=== PATIENT | female | born 1985 | race Asian ===

== ENCOUNTER 2016-05-07 04:30 | Inpatient (IN) | payer SELFPAY ==
[~2016-05-07] VITALS: Ht 157.5 cm; Wt 63.0 kg
[2016-05-07] MEDS ORDERED: LACTATED RINGERS 1,000 ML IV SCH (05:26)
[2016-05-07] MEDS ORDERED: PROMETHAZINE 25 MG/ML VIAL IVP PRN (05:30)
[2016-05-07] MEDS ORDERED: NALBUPHINE HYDROCHLORIDE 10 MG/ML VIAL IVP PRN (05:30)
[2016-05-07] MEDS ORDERED: OXYTOCIN 20 UNITS/LR PREMIX 1,000 ML IV SCH (05:30)
[2016-05-07] MEDS ORDERED: LACTATED RINGERS 500 ML IV SCH (05:30)
[2016-05-07] MEDS ORDERED: OXYTOCIN 10 UNITS/ML VIAL IM SCH (05:30)
[2016-05-07 06:14] VITALS: BP 130/72
[2016-05-07] MEDS ORDERED: INFLUENZA VIRUS VACCINE QUAD 0.5 ML SYR IMVAC ONE (06:15)
[2016-05-07] MEDS ORDERED: ROPIVACAINE 0.2%/NS PREMIX 250 ML EPI ONE (06:49)
[2016-05-07] MEDS ORDERED: AMPICILLIN 2,000 MG VIAL ONE ×2 (07:48→12:37)
--- NOTE | 2016-05-07 08:31 | NUR ---
PATIENT HAS BEEN SCREENED AND CATEGORIZED LOW NUTRITION RISK. PATIENT WILL BE SEEN WITHIN 7 DAYS OF ADMISSION. 05/13/[address]
[2016-05-07] MEDS ORDERED: OXYTOCIN 10 UNITS/ML VIAL ONE (11:14)
[2016-05-07] MEDS ORDERED: OXYTOCIN 20 UNITS/LR PREMIX 1,000 ML IV ONE (11:34)
[2016-05-07] MEDS ORDERED: oxyCODONE/APAP 5/325 MG 1 TAB TAB ONE (17:44)
[2016-05-07] MEDS ORDERED: TEMAZEPAM 15 MG CAP PO PRN (21:00)
[2016-05-07] MEDS ORDERED: OXYTOCIN 10 UNITS/ML VIAL IM PRN (21:00)
[2016-05-07] MEDS ORDERED: DOCUSATE SOD/SENNA 50/8.6 MG 1 TAB PO SCH (21:00)
[2016-05-07] MEDS ORDERED: MEASLES, MUMPS, AND RUBELLA 1 VIAL SQVAC PRN (21:00)
[2016-05-07] MEDS ORDERED: METHYLERGONOVINE 0.2 MG/ML AMP IM PRN (21:00)
[2016-05-07] MEDS ORDERED: IBUPROFEN 800 MG TAB PO PRN (21:00)
[2016-05-07] MEDS ORDERED: BENZOCAINE/MENTHOL 20%-0.5% 60 GM CAN TP PRN (21:00)
[2016-05-07] MEDS ORDERED: WITCH HAZEL 40 PAD PACKAGE TP PRN (21:00)
[2016-05-07] MEDS ORDERED: oxyCODONE/APAP 5/325 MG 1 TAB TAB PO PRN (21:00)
[2016-05-08] MEDS: HYDROcodone/APAP 5/325 MG 1 TAB TAB PO PRN (03:51)
[2016-05-09] MEDS: HYDROcodone/APAP 5/325 MG 1 TAB TAB PO PRN ×3 (08:11→21:16)
[2016-05-09] MEDS ORDERED: DOCUSATE SOD/SENNA 50/8.6 MG 1 TAB PO PRN (11:10)
[2016-05-09] MEDS ORDERED: MOTRIN600 MG PO (11:11)
== END 2016-05-09 22:40 | disposition home or self-care (01) | DRG 775 ==
LOC: MLD 04:30 → MFCC 18:12
PROVIDERS: ADMIT Obstetrics & Gynecology; ATTEND Obstetrics & Gynecology
PROC: 10E0XZZ Delivery of Products of Conception, External Approach (ICD-10-PCS; principal; 2016-05-07)
PROC: 3E033VJ Introduction of Other Hormone into Peripheral Vein, Percutaneous Approach (ICD-10-PCS; 2016-05-07)
PROC: 3E0S3CZ (ICD-10-PCS; 2016-05-07)
PROC: 00HU33Z Insertion of Infusion Device into Spinal Canal, Percutaneous Approach (ICD-10-PCS; 2016-05-07)
PROC: 3E0234Z Introduction of Serum, Toxoid and Vaccine into Muscle, Percutaneous Approach (ICD-10-PCS; 2016-05-07)
PROC: 0W8NXZZ Division of Female Perineum, External Approach (ICD-10-PCS; 2016-05-07)
DX: O69.81X0 Labor and delivery complicated by cord around neck, without compression, not applicable or unspecified (principal); Z3A.39 39 weeks gestation of pregnancy; Z37.0 Single live birth; Z23 Encounter for immunization